=== PATIENT | male | born 1955 | race Caucasian/White ===

== ENCOUNTER 2023-07-13 09:48 | Outpatient (OUT) | payer MEDICARE, OTHER, SELFPAY ==
[2023-07-13 13:30] LABS: Chol HDL Ratio 2.9; Cholesterol 113 mg/dL (<=200); HDL Cholesterol 39 mg/dL (40-60); Triglycerides 69 mg/dL (<=150); VLDL CHOLESTEROL 13.8 mg/dL
== END 2023-07-13 09:49 | disposition home or self-care (01) ==
LOC: LAB 09:52
PROVIDERS: Family Provider Family Medicine; Visit Provider Nurse Practitioner Acute Care
DX: E78.5 Hyperlipidemia, unspecified (principal)
CPT/HCPCS: 36415; 80061

== ENCOUNTER 2023-07-28 06:49 | Outpatient (OUT) | payer MEDICARE, OTHER, SELFPAY ==
--- NOTE | 2023-07-28 08:33 | CA_ITS ---
Patient: DINA HOROWITZ Exam Date: 07/28/2023 : 1955 Gender:M Ordering : DR HEMANT DONIS M.D. Admission #: [id number] Family : Order #: [id number] CLICK HERE TO VIEW EXAM ECHOCARDIOGRAM REPORT PROCEDURE: CA ECHO W/ CON COMPARISON: None. DESCRIPTION: COMPLETE ECHOCARDIOGRAM Real-time transthoracic echocardiography with 2D, M-mode, spectral and color flow Doppler performed. QUALITY: Lumason contrast was administered due to suboptimal imaging for left ventricular opacification to improve delineation of endocardial boarders. LEFT VENTRICLE: Normal chamber size. Mild concentric left ventricular hypertrophy. Global left ventricular systolic function is normal. No evidence of intracavitary thrombi. LV EF: Estimated left ventricular ejection fraction is 55%. DIASTOLIC: Normal diastolic function. ATRIAL SEPTUM: LEFT ATRIUM: Normal chamber size. RIGHT ATRIUM: Mild dilatation. RIGHT VENTRICLE: Normal chamber size. Normal right ventricular systolic function. TRICUSPID VALVE: Normal mobility and thickness. No stenosis with trivial regurgitation. Mild pulmonary hypertension. RVSP 44 mmHg MITRAL VALVE: Normal mobility and thickness. No evidence of mitral valve stenosis. There is no mitral annular calcification. Trivial mitral regurgitation. AORTIC VALVE: Normal trileaflet appearance. Mildly calcified aortic valve. Normal leaflet mobility. No evidence of aortic valve stenosis. No aortic regurgitation. AORTIC ROOT: Upper normal in size, measuring 3.8 cm. Ascending aorta is normal in size measuring 3.1 cm. PULMONIC VALVE: Normal thickness and mobility. No stenosis. No regurgitation. PERICARDIUM: No evidence of pericardial effusion. IVC: Collapses with inspirations. Moderate dilatation measuring 2.5 cm. PLEURA: CONCLUSION: 1. Mild concentric left ventricular hypertrophy. Normal left ventricular systolic function. Estimated ejection fraction is 55%. 2. Normal right ventricular size and systolic function. 3. Normal diastolic function. 4. No significant valvular dysfunction. 5. Mildly elevated right-sided pressures. Adult Echocardiography Procedure Report Left Ventricle LVEDD (3.7 - 5.6 cm): 5.44 cm LVESD (2.2 - 4.0 cm): 4.33 cm LVIVS thickness (0.6 - 1.2 cm): 1.17 cm LVPW thickness (0.5 - 1.0 cm): 1.24 cm e': 0.10 m/s E - e': 8.60 LVOT Max Gradient: 2.20 mm[Hg] LVOT Area (cm2): 0.74 m/s Peak Velocity (LVOT): 0.74 m/s Mean Velocity (LVOT): 0.49 m/s LVOT Diameter 2.26 cm Left Ventricular Ejection Fraction: 55 % Left Atrium LA Volume Index (2D A2C): 42.86 ml/m2 Left Atrium Systolic Dimension: 4.43 cm Mitral Valve MV E to A Ratio: 2.09 Mitral Valve A-Wave Peak Velocity: 0.42 m/s Mitral Valve E-Wave Peak Velocity: 0.87 m/s Right Ventricle RV Internal Diastolic Dimension: 4.38 cm Aorta AO Root Diam: 3.76 cm Ascending Ao Diam: 3.10 cm Aortic Valve AoV Area (Peak Jason): 2.13 cm2, 2.13 cm2 AoV Area (VTI): 1.72 cm2, 1.72 cm2 Peak Velocity(Antegrade Flow): 1.40 m/s Peak Gradient(Antegrade Flow): 7.83 mm[Hg] Mean Velocity(Antegrade Flow): 0.93 m/s Mean Gradient(Antegrade Flow): 3.87 mm[Hg] Velocity Time Integral: 34.30 cm Tricuspid Valve Peak Velocity (Regurgitant Flow): 2.45 m/s, 1.91 m/s, 2.99 m/s Pulmonic Valve Mean Gradient: 2.79 mm[Hg], 2.42 mm[Hg] Mean Velocity: 0.77 m/s, 0.71 m/s Peak Velocity: 1.12 m/s Peak Gradient: 5.31 mm[Hg], 4.74 mm[Hg] Right Atrium Right Atrium Systolic Pressure: 96.84 ml, 96.84 ml Dictated by: See Smith M.D. on 08/02/2023 at 12:34 Approved by: See Smith M.D. on 08/02/2023 at 12:41
== END 2023-07-28 06:50 | disposition home or self-care (01) ==
LOC: CARD 06:49
PROVIDERS: Family Provider Family Medicine; Visit Provider Internal Medicine Interventional Cardiology
DX: R06.09 Other forms of dyspnea (principal)
CPT/HCPCS: C8929

== ENCOUNTER 2025-04-02 08:24 | Outpatient (OUT) | payer MEDICARE, OTHER, SELFPAY ==
--- NOTE | 2025-04-02 08:30 | CA_ITS ---
Patient Name: DINA HOROWITZ MR#: [id number] : 1955 Exam Date: 04/02/2025 Ordering Doctor: DR HEMANT DONIS M.D. ECHOCARDIOGRAM REPORT PROCEDURE: CA ECHO DOPPLER COMPLETE INDICATIONS: Dyspnea on exertion, CABGx4, hypertension COMPARISON: None. DESCRIPTION: COMPLETE ECHOCARDIOGRAM Real-time transthoracic echocardiography with 2D, M-mode, spectral and color flow Doppler performed. QUALITY: Technical quality was adequate. LEFT VENTRICLE: Normal chamber size. Mild concentric left ventricular hypertrophy. Systolic function is difficult to assess due to poor sound transmission but appears at the lower limits of normal. LV EF: Low normal left ventricular ejection fraction, (50-55%). DIASTOLIC: Diastolic function is indeterminate. ATRIAL SEPTUM: LEFT ATRIUM: Moderate dilatation. RIGHT ATRIUM: Moderate dilatation. RIGHT VENTRICLE: Mild dilatation. Normal right ventricular systolic function. TRICUSPID VALVE: Normal mobility and thickness. No stenosis with no regurgitation. Unable to assess right-sided pressures due to lack of measurable tricuspid regurgitation. MITRAL VALVE: Normal mobility and thickness. No evidence of mitral valve stenosis. There is no mitral annular calcification. No mitral regurgitation. AORTIC VALVE: Normal trileaflet appearance. Mildly calcified aortic valve. Normal leaflet mobility. No evidence of aortic valve stenosis. No aortic regurgitation. AORTIC ROOT: Mildly dilated, measuring 4.1 cm. PULMONIC VALVE: Normal thickness and mobility. No stenosis. No regurgitation. PERICARDIUM: No evidence of pericardial effusion. IVC: Collapses with inspiration. IVC is dilated (2.6 cm) PLEURA: CONCLUSION: 1. Mild concentric left ventricular hypertrophy with low normal systolic function. LVEF is estimated at 50 to 55%. 2. the right ventricle is mildly dilated and exhibits normal systolic function. 3. No significant valvular dysfunction. 4. Moderate biatrial dilatation. 5. No pericardial effusion. 6. Unable to assess right-sided pressures due to lack of measurable tricuspid regurgitation. Adult Echocardiography Procedure Report Left Ventricle LVEDD (3.7 - 5.6 cm): 5.50 cm LVESD (2.2 - 4.0 cm): 4.98 cm LVIVS thickness (0.6 - 1.2 cm): 1.20 cm LVPW thickness (0.5 - 1.0 cm): 1.32 cm e': 0.09 m/s E - e': 7.00 LVOT Max Gradient: 0.79 mm[Hg] LVOT Area (cm2): 0.44 m/s Peak Velocity (LVOT): 0.44 m/s LVOT Diameter 2.56 cm Left Atrium LA Volume Index (2D A2C): 49.45 ml/m2 Left Atrium Systolic Dimension: 5.47 cm Mitral Valve MV E to A Ratio: 1.37 Mitral Valve A-Wave Peak Velocity: 0.45 m/s Mitral Valve E-Wave Peak Velocity: 0.61 m/s Right Ventricle Aorta AO Root Diam: 4.13 cm Aortic Valve AoV Area (Peak Jason): 2.10 cm2, 2.10 cm2 Peak Velocity(Antegrade Flow): 1.09 m/s Peak Gradient(Antegrade Flow): 4.74 mm[Hg] Tricuspid Valve Pulmonic Valve Peak Gradient: 3.17 mm[Hg], 3.17 mm[Hg] Right Atrium Right Atrium Systolic Pressure: 116.13 ml, 116.13 ml Dictated by: See Smith M.D. on 04/02/2025 at 10:32 Approved by: See Smith M.D. on 04/02/2025 at 10:37
== END 2025-04-02 08:25 | disposition home or self-care (01) ==
PROVIDERS: Family Provider Family Medicine; PCP Family Medicine; Visit Provider Internal Medicine Interventional Cardiology
DX: R06.09 Other forms of dyspnea (principal)
CPT/HCPCS: 93306